=== PATIENT | female | born 1960 | race Caucasian/White ===

== ENCOUNTER 2022-04-14 06:28 | Day surgery (SDC) | payer OTHER ==
[~2022-04-14] VITALS: Ht 160 cm; Wt 72.6 kg
[2022-04-14] MEDS ORDERED: MIDAZOLAM 5 MG/5 ML VIAL ONE (07:24)
[2022-04-14] MEDS ORDERED: LIDOCAINE 2% 100 MG/5 ML UJET TP ONE (07:24)
[2022-04-14] MEDS ORDERED: fentaNYL citrate 0.05 MG/ML VIAL ONE (07:24)
[2022-04-14] MEDS ORDERED: fentaNYL citrate 0.05 MG/ML VIAL IVP ONE (08:55)
[2022-04-14] MEDS ORDERED: MIDAZOLAM 5 MG/5 ML VIAL IV ONE (08:55)
== END 2022-04-14 09:21 | disposition home or self-care (01) ==
LOC: MDS 06:28 → MMU 06:33 → MDS 09:21
PROVIDERS: ATTEND Internal Medicine Gastroenterology
DX: R19.4 Change in bowel habit (principal); K63.5 Polyp of colon; K31.7 Polyp of stomach and duodenum; K22.70 Barrett's esophagus without dysplasia; I10 Essential (primary) hypertension; E78.00 Pure hypercholesterolemia, unspecified; K30 Functional dyspepsia; K21.9 Gastro-esophageal reflux disease without esophagitis; Z20.822 Contact with and (suspected) exposure to COVID-19; Z79.899 Other long term (current) drug therapy
CPT/HCPCS: 36415; 43239; 43251; 45385; 86677; 87426; J2250; J3010